=== PATIENT | female | born 1945 | race Caucasian/White ===

== ENCOUNTER 2022-07-29 14:01 | Emergency (ER) | payer MEDICARE, OTHER | END 2022-07-29 19:40 | disposition home or self-care (01) | LOC: DL.ED 14:01 | DX: S82.831A Other fracture of upper and lower end of right fibula, initial encounter for closed fracture (principal); I10 Essential (primary) hypertension; M25.562 Pain in left knee; Z79.899 Other long term (current) drug therapy; R07.81 Pleurodynia; R51.9 Headache, unspecified; W11.XXXA Fall on and from ladder, initial encounter | CPT/HCPCS: 29515; 71100-RT; 73562-LT; 73610-RT; 99283; 99284 ==

== ENCOUNTER 2022-11-27 12:42 | Emergency (ER) | payer MEDICARE, OTHER ==
[2022-11-27 13:56] LABS: PTT,PARTIAL THROMBOPLSTIN TIME 27.2 SEC (22.0-34.0)
[2022-11-27 14:03] LABS: ANION GAP 12.2 mEq/L (7-13)
== END 2022-11-27 14:28 | disposition home or self-care (01) ==
LOC: DL.ED 12:42
DX: I49.1 Atrial premature depolarization (principal); I10 Essential (primary) hypertension; Z79.899 Other long term (current) drug therapy
CPT/HCPCS: 36415; 80053; 81001; 83735; 84443; 84484; 85025; 85610; 85730; 93005; 93010; 99284; 99285